=== PATIENT | female | born 2000 | race Caucasian/White ===

== ENCOUNTER → 2023-10-18 13:15 | Outpatient (REF) | payer OTHER, SELFPAY | LOC: HWRAD 13:15 | PROVIDERS: ATTENDING PHYSICIAN Obstetrics & Gynecology; FAMILY PHYSICIAN Nurse Practitioner Family | DX: E28.2 Polycystic ovarian syndrome (principal) | CPT/HCPCS: 76830; 76856 ==

== ENCOUNTER → 2023-11-17 17:46 | Outpatient (REF) | payer OTHER, SELFPAY | LOC: RAD 17:46 | PROVIDERS: ATTENDING PHYSICIAN Nurse Practitioner Family | DX: M54.2 Cervicalgia (principal) | CPT/HCPCS: 72050 ==